=== PATIENT | female | born 1970 | race Caucasian/White ===

== ENCOUNTER 2017-10-07 08:19 | Observation (INO) | payer OTHER ==
[2017-10-07 09:25] LABS: ADD MAN DIFF? NO
[2017-10-07 09:28] LABS: BASOPHIL # 0.1 10^3/ul (0.0-0.1); BASOPHILS % 0.7 % (0.0-2.0); EOSINOPHILS # 0.2 10^3/ul (0.0-0.5); EOSINOPHILS % 2.2 % (0.0-7.0); HEMATOCRIT 40.1 % (37.0-47.0); HEMOGLOBIN 13.2 g/dl (12.0-16.0); LYMPHOCYTES % 27.3 % (15.0-51.0); MEAN CORPUSCULAR HGB CONC 32.9 g/dl (32.0-37.0); MEAN CORPUSCULAR VOLUME 91.1 fl (82.0-101.0); MEAN PLATELET VOLUME 8.9 fl (7.4-10.4); MONOCYTE # 0.5 10^3/ul (0.3-0.9); MONOCYTES % 6.9 % (0.0-11.0); NEUTROPHIL # 4.7 10^3/ul (1.6-7.5); NEUTROPHILS % 62.5 % (39.0-77.0); PLATELET COUNT 244 10^3/UL (140-415)
[2017-10-07 09:28] LABS: WHITE BLOOD COUNT 7.4 10^3/ul (4.8-10.8)
[2017-10-07 09:51] LABS: ALANINE AMINOTRANSFERASE 37 IU/L (13-69); ALBUMIN 3.9 g/dl (3.3-4.9); ALKALINE PHOSPHATASE 53 IU/L (42-121); ANION GAP 13 (8-16); ASPARTATE AMINO TRANSFERASE 34 IU/L (15-46); BILIRUBIN,INDIRECT 0.2 mg/dl (0-1.1); BILIRUBIN,TOTAL 0.2 mg/dl (0.2-1.3); CARBON DIOXIDE 28 mmol/L (21-31); CHOL/HDL RATIO 2.3 RATIO; CHOLESTEROL 139 mg/dl (100-200); GLUCOSE 91 mg/dl (70-220); HDL CHOLESTEROL 60 mg/dl (34-88); LDL CHOLESTEROL,CALCULATED 52 mg/dl; TOTAL PROTEIN 6.9 g/dl (6.1-8.1); TRIGLYCERIDES 135 mg/dl (0-149)
[2017-10-07 09:53] LABS: BLOOD UREA NITROGEN 12 mg/dl (7-20); CALCIUM 9.3 mg/dl (8.4-10.2); CREATININE 0.56 mg/dl (0.44-1.00); POTASSIUM 4.6 mmol/L (3.5-5.1)
[2017-10-07 09:57] LABS: CHLORIDE 111 mmol/L (97-110); SODIUM 147 mmol/L (135-144)
[2017-10-07 10:32] LABS: INR 0.96; PROTIME 12.9 Sec (11.9-14.9)
[2017-10-07 10:33] LABS: PARTIAL THROMBOPLASTIN TIME 29.3 Sec (25.0-35.0)
[2017-10-07] MEDS ORDERED: FENTAnyl 50 MCG/ML VIAL ×2 (10:58→11:29)
[2017-10-07] MEDS ORDERED: MIDAZOLAM 1 MG/ML 2 ML INJ ×2 (10:59→11:29)
[2017-10-07] MEDS ORDERED: NITROGLYCERIN (IC) 100 MCG/ML INJ ×2 (10:59→12:29)
[2017-10-07] MEDS ORDERED: LIDOCAINE 1% (MDV) 20 ML INJ ×3 (10:59→11:30)
[2017-10-07] MEDS ORDERED: VERAPAMIL 5 MG INJ ×3 (10:59→12:00)
[2017-10-07] MEDS: VERAPAMIL 4 MG, NITROGLYCERIN 4 MG, HEPARIN (10000 UNITS/ML) 20,000 UNIT, LIDOCAINE 2% ... IV (11:00)
[2017-10-07] MEDS ORDERED: HEPARIN 1000 UNITS/ML 10 ML INJ (11:59)
[2017-10-07] MEDS ORDERED: IOHEXOL 350MG/ML 50 ML BTL (12:45)
[2017-10-07] MEDS ORDERED: HEPARIN 1000 UNITS/NS (A-LINE) 2,000 ML (12:45)
[2017-10-07] MEDS ORDERED: IODIXANOL LOCM 100 ML BTL (12:45)
[2017-10-07] MEDS ORDERED: CLOPIDOGREL 300 MG TAB (13:08)
[2017-10-07] MEDS ORDERED: AL HYDROX/MG HYDROX/SIMETH 30 ML CUP PO (13:30)
[2017-10-07] MEDS: ONDANSETRON 4 MG INJ IV (14:16)
[2017-10-07] MEDS: SOD CHLORIDE 0.9% 1,000 ML IV (14:20)
[2017-10-07] MEDS: ACETAMINOPHEN 325 MG TAB PO (16:08)
[2017-10-07] MEDS: HYDROmorphONE 0.5 MG/0.5 ML SYG IV ×2 (17:57→21:16)
[2017-10-07] MEDS: DOCUSATE SODIUM 100 MG CAP PO (21:09)
[2017-10-07] MEDS: METOPROLOL (XL) 50 MG TAB PO (21:09)
[2017-10-07] MEDS: ATORVASTATIN 40 MG TAB PO (21:09)
[2017-10-07] MEDS: RANOLAZINE (SR) 500 MG TAB PO (22:41)
[2017-10-08] MEDS: ONDANSETRON 4 MG INJ IV (01:24)
[2017-10-08] MEDS: HYDROmorphONE 0.5 MG/0.5 ML SYG IV ×2 (01:24→12:28)
[2017-10-08 05:41] LABS: ADD MAN DIFF? NO
[2017-10-08 05:44] LABS: BASOPHILS % 0.5 % (0.0-2.0); EOSINOPHILS # 0.1 10^3/ul (0.0-0.5); EOSINOPHILS % 1.6 % (0.0-7.0); HEMOGLOBIN 11.2 g/dl (12.0-16.0); LYMPHOCYTES # 1.4 10^3/ul (0.8-2.9); LYMPHOCYTES % 18.6 % (15.0-51.0); MEAN CORPUSCULAR HEMOGLOBIN 29.7 pg (29.0-33.0); MEAN CORPUSCULAR HGB CONC 32.9 g/dl (32.0-37.0); MEAN CORPUSCULAR VOLUME 90.2 fl (82.0-101.0); MEAN PLATELET VOLUME 8.7 fl (7.4-10.4); MONOCYTE # 0.5 10^3/ul (0.3-0.9); MONOCYTES % 7.2 % (0.0-11.0); NEUTROPHIL # 5.4 10^3/ul (1.6-7.5); NEUTROPHILS % 71.8 % (39.0-77.0); PLATELET COUNT 201 10^3/UL (140-415); RED BLOOD COUNT 3.77 10^6/ul (4.20-5.40); RED CELL DISTRIBUTION WIDTH 13.1 % (11.5-14.5)
[2017-10-08 05:44] LABS: WHITE BLOOD COUNT 7.5 10^3/ul (4.8-10.8)
[2017-10-08 06:14] LABS: CREATINE KINASE 56 IU/L (23-200)
[2017-10-08 06:16] LABS: ALANINE AMINOTRANSFERASE 32 IU/L (13-69); ALBUMIN 3.3 g/dl (3.3-4.9); ALBUMIN/GLOBULIN RATIO 1.22; ALKALINE PHOSPHATASE 43 IU/L (42-121); ANION GAP 12 (8-16); ASPARTATE AMINO TRANSFERASE 23 IU/L (15-46); BILIRUBIN,INDIRECT 0.4 mg/dl (0-1.1); BILIRUBIN,TOTAL 0.4 mg/dl (0.2-1.3); BLOOD UREA NITROGEN 10 mg/dl (7-20); CARBON DIOXIDE 23 mmol/L (21-31); CHLORIDE 107 mmol/L (97-110); CREATININE 0.52 mg/dl (0.44-1.00); GLUCOSE 97 mg/dl (70-220); MAGNESIUM 1.9 mg/dl (1.7-2.5); POTASSIUM 4.3 mmol/L (3.5-5.1); SODIUM 138 mmol/L (135-144)
[2017-10-08 06:27] LABS: CK INDEX 1.6; CK-MB 0.92 ng/ml (0.0-2.4); TROPONIN-I 0.081 ng/ml (0.000-0.120)
[2017-10-08] MEDS: RANOLAZINE (SR) 500 MG TAB PO (08:15)
[2017-10-08] MEDS: CLOPIDOGREL 75 MG TAB PO (08:16)
[2017-10-08] MEDS: ASPIRIN (EC) 81 MG TAB PO (08:16)
[2017-10-08] MEDS: METOPROLOL (XL) 50 MG TAB PO (08:16)
[2017-10-08] MEDS: DOCUSATE SODIUM 100 MG CAP PO (08:16)
[2017-10-08] MEDS: ACETAMINOPHEN 325 MG TAB PO (10:38)
[2017-10-08] MEDS: ONDANSETRON 4 MG TAB PO (13:44)
== END 2017-10-08 16:15 | disposition home or self-care (01) ==
LOC: SDS 08:19 → REC 13:21 → ICU 17:18
DX: I25.118 Atherosclerotic heart disease of native coronary artery with other forms of angina pectoris (principal); I25.82 Chronic total occlusion of coronary artery; I10 Essential (primary) hypertension; E78.5 Hyperlipidemia, unspecified; E66.9 Obesity, unspecified; Z68.41 Body mass index [BMI] 40.0-44.9, adult; E87.0 Hyperosmolality and hypernatremia; D64.9 Anemia, unspecified
CPT/HCPCS: 80053; 80061; 82550; 82553; 83735; 84484; 84703; 85025; 85610; 85730; 87081; 93005; 93458; 99217